=== PATIENT | male | born 1990 | race Caucasian/White ===

== ENCOUNTER 2020-08-15 11:02 | Emergency (ER) | payer OTHER, SELFPAY ==
[2020-08-15 11:10] VITALS: BP 119/74; PULSE 81; RESP 18; TEMP 36.6; O2SAT 100; BMI 30.1
--- NOTE | 2020-08-15 11:59 | PC.NURSE ---
[place] [facility] NOTIFIED BY PHONE MESSAGE. NO FAX NUMBER. PATIENT GIVEN ANIMAL BITE REPORT TO PRESENT TO [facility].
--- NOTE | 2020-08-15 11:59 | ED.ANIMALBIT ---
HPI - Animal Bite General Chief Complaint: Animal Bite Stated Complaint: dog bite Time Seen by Provider: 08/15/20 11:59 History of Present Illness HPI narrative: Patient complains of dog bite today to his right forearm from his sister's dog which is a known dog up-to-date on rabies shots that lives in sister's home He has no joint pain no numbness weakness or tingling no other injury He is not up-to-date on tetanus shot and has no allergy to antibiotic Related Data Previous Rx's Medication Instructions Recorded amoxicillin-pot clavulanate 1 tab PO BID 3 Days #6 tab 08/15/20 [Augmentin] Allergies Allergy/AdvReac Type Severity Reaction Status Date / Time No Known Allergies Allergy Verified 08/15/20 11:12 Review of Systems Review of Systems: Positive for right forearm dog bite Negative no fever no chills no headache no difficulty breathing or swallowing no rash no joint pain no numbness weakness or tingling PMFSH Past Medical History Source: nursing notes reviewed Medical History (Updated 08/15/20 @ 12:04 by ZABRINA Sparks) No known health problems Social History Social History Advance Directives: No Advance Directives Information Provided: No Physical Exam Vital Signs: Vital Signs: Last Vital Signs Temp 97.9 F 08/15/20 11:10 Pulse 81 08/15/20 11:10 Resp 18 08/15/20 11:10 BP 119/74 08/15/20 11:10 Pulse Ox 100 08/15/20 11:10 Body Mass Index 30.1 General appearance no distress Head is normocephalic atraumatic Neck supple nontender Respiratory no distress Extremities the right forearm has 3 superficial bite vaughn, no swelling of wrist or elbow there is full range of motion in all joints, neurovascular intact distal and full tendon function distal Skin no rash Neuro no focal motor or sensory deficit Course Course Course Narrative: The dog that bit him belongs to his sister and can be observed The sister also says that is fully up-to-date on all rabies immunization Prophylactic antibiotics started and tetanus shot given Discharge Plan Discharge Clinical Impression: Dog bite Qualifiers: Encounter type: initial encounter Qualified Code(s): W54.0XXA - Bitten by dog, initial encounter Patient Disposition: Home, Self-Care Additional Instructions: Bite does not look serious and does not need stitches, the bite vaughn will close on their own over the next several days Return any time for fever, redness, pain, swelling, any sign of infection around the bite wounds We are giving antibiotic Augmentin to prevent infection and you got a tetanus shot Prescriptions: New amoxicillin-pot clavulanate [Augmentin] 875-125 mg tablet 1 tab PO BID 3 Days Qty: 6 RF: 0 Interventions: ED Discharge Assessment Last Done: 08/15/20 12:12 Discharge Date/Time: 08/15/20 12:13
[2020-08-15] MEDS: Diphth,Pertus(ACell),Tet Adult 0.5 ML SYRINGE IM (12:08)
[2020-08-15] MEDS: Amoxicillin/Potassium Clav 875 MG TABLET PO (12:08)
== END 2020-08-15 12:13 | disposition home or self-care (01) ==
PROVIDERS: Emergency Provider Emergency Medicine; PCP Internal Medicine
DX: S51.851A Open bite of right forearm, initial encounter (principal); M79.601 Pain in right arm; W54.0XXA Bitten by dog, initial encounter; Y93.9 Activity, unspecified; Y92.9 Unspecified place or not applicable; Y99.9 Unspecified external cause status
CPT/HCPCS: 90471; 90715; 99283

== ENCOUNTER 2022-11-26 09:19 | Outpatient (AMB) | payer SELFPAY ==
[2022-11-26 09:37] VITALS: BP 110/66; PULSE 65; TEMP 36.9; O2SAT 97
--- NOTE | 2022-11-26 09:37 | AM.OFFWIN_ITS ---
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 He states that he has not had a fever or chills, no baseline allergy history. He reports no known contact with COVID or sick individuals. He denies fever or chills, nausea vomiting or diarrhea, headache or dizziness, sore throat, difficulty swallowing, malaise or myalgias, shortness of breath or chest pain, excessively runny nose, weakness, anorexia, rashes, or other significant associated symptoms. No underlying immuno compromising issues [facility] Medical History No known health problems Social History Patient Tobacco Use Status: Never used Tobacco Review of Systems Const All systems reviewed & are unremarkable except as noted in HPI and below Physical Exam Vital Signs: Last Vital Signs Temp 98.4 F 11/26/22 09:37 Pulse 65 11/26/22 09:37 BP 110/66 11/26/22 09:37 Pulse Ox 97 11/26/22 09:37 Oxygen Delivery Method Room Air 11/26/22 09:37 Const General: cooperative, healthy appearing, comfortable, no acute distress, alert, awake, Physically active and well groomed; No anxious, diaphoretic, ill appearing, intoxicated appearing, poor hygiene or tired appearing Nutritional Appearance: average body habitus Orientation/consciousness: oriented to person Limitations: no limitations HEENT Head: Yes normal to inspection, Yes normocephalic and Yes atraumatic Ears: hearing grossly normal bilaterally, external ears normal, EAC's normal and TM abnormal (Right TM) erythematous and with fluid behind the TM General nose exam: Normal external nose present, Normal nares present, No nasal polyps present, Normal nasal mucous membranes and turbinates present, Normal septum present and No nasal discharge present Face and sinus: Yes normal facial exam, Yes sinuses nontender and Yes face symmetric Mouth: Normal oral and palatal mucosa present, lip normal and tongue normal Throat: Yes posterior oropharynx normal, Yes abnormal tonsil (mildly erythematous bilaterally), No peritonsillar mass, No uvular edema and No cobblestoning Eyes General: appearance normal, both eyes and all related structures Neck Neck: Yes normal visual inspection, Yes full ROM, Yes no lymphadenopathy, Yes trachea midline, Yes supple and No anterior neck swelling Chest Chest palpation & inspection: normal palpation of entire chest wall Resp Effort & Inspection: normal respiratory effort, able to speak in complete sentences, no audible wheezes, no cough, no grunting, not labored, no nasal flaring, no retractions and symmetric chest movement Auscultation: clear to auscultation bilaterally, no crackles, no rales, no rhonchi, no wheezes, lung sounds not diminished and No rub present Cardio Palpation: normal PMI Rate: regular rate Rhythm: regular rhythm Heart sounds: S1 normal heart sound present and S2 normal heart sound present Skin Other: Good color, warm and dry Neuro General: oriented to person Psych Appearance: grossly normal Mental Status: mental status grossly normal Speech and movement: Normal speech and movement present Affect: normal affect Attitude: cooperative Thought process: Normal thought process present Insight: Good insight present (Psych) Judgement: Good judgement present (Psych) Assessment & Plan Assessment & Plan (1) Viral syndrome: Code(s): B34.9 - Viral infection, unspecified Plan: Patient with apparent viral syndrome/upper respiratory infection that is now looking like a right otitis media. Likely this is what is causing his persistent postnasal drip and cough, especially when supine. Will write him for Tessalon Perles for the cough, and Augmentin for the right ear. He is pending rapid COVID testing. PCR testing not available. He will follow up if symptoms persist or worsen Orders: Orders BinaxNOW Covid-19 11/26/22 Z20.822 - Contact with and (suspected) exposure to COVID-19 Medications: New benzonatate 100 mg PO BID-TID PRN 30 caps 0RF cough amoxicillin-pot clavulanate 875-125 mg 1 tab PO BID 14 tabs 0RF Coding Level of Care Code Est Pt Level 4 (08697) Diagnoses Viral syndrome B34.9
== END 2022-11-26 11:01 | disposition home or self-care (01) ==
PROVIDERS: PCP Internal Medicine; Visit Provider Physician Assistant Medical
DX: B34.9 Viral infection, unspecified (principal)
CPT/HCPCS: 99051; 99214

== ENCOUNTER 2022-11-26 10:20 | Outpatient (REF) | payer SELFPAY ==
[2022-11-26 10:49] LABS: Binax Now Covid-19 Ag Negative (Negative)
[2022-11-26 10:50] LABS: Binax Internal Control QC Valid; Binax Performed by: HO.BONILM
== END 2022-11-26 10:21 | disposition home or self-care (01) ==
LOC: HO.HMGCLDS 10:20
PROVIDERS: Visit Provider Physician Assistant Medical
DX: Z20.822 Contact with and (suspected) exposure to COVID-19 (principal)
CPT/HCPCS: 87811; C9803

== ENCOUNTER 2024-09-13 09:46 | Outpatient (AMB) | payer SELFPAY ==
[2024-09-13 09:47] VITALS: BP 124/82; PULSE 85; TEMP 36.5; O2SAT 97; BMI 31.0
--- NOTE | 2024-09-13 09:47 | MHC.OFFWIV ---
Intake Vital Signs 09/13/24 09:47 Height 5 ft 3 in Weight 175 lb 4 oz BMI 31.0 BP 124/82 Blood Pressure Location Lt brachial Position Sitting Pulse 85 Pulse Source Pulse Oximeter Temp 97.7 F Temp Source Oral Pulse Oximetry (%) 97 Oxygen Delivery Method Room Air Intake Visit Reasons: EP ?Sinus infection Intake Note: Pt presents to the office today for c/o sinus pressure,headache, runny nose since yesterday. Patient Tobacco Use Status: Never used Tobacco Allergies No Known Allergies Allergy (Verified 09/13/24 09:50) HPI EP ?Sinus infection HPI Details This is a 34-year-old male patient who presents to the walk-in clinic with report of a 1-2 day history of mildly sore throat, nasal congestion/sinus pressure, headache. Reports fever up to 100.8. Denies any cough/shortness of breath or GI symptoms. Denies any known exposure to sick contacts. Has been increasing rest, hydration, and taking vitamin-C and elderberry supplements. [facility] Medical History No known health problems Social History Patient Tobacco Use Status: Never used Tobacco Review of Systems Const All systems reviewed & are unremarkable except as noted in HPI and below Physical Exam Vital Signs: Last Vital Signs Temp 97.7 F 09/13/24 09:47 Pulse 85 09/13/24 09:47 BP 124/82 09/13/24 09:47 Pulse Ox 97 09/13/24 09:47 Oxygen Delivery Method Room Air 09/13/24 09:47 BMI result Body Mass Index 31.0 Const General: cooperative, healthy appearing, comfortable and no acute distress Limitations: no limitations HEENT Head: Yes normal to inspection Ears: hearing grossly normal bilaterally General nose exam: Normal external nose present Face and sinus: Yes normal facial exam Mouth: Normal oral and palatal mucosa present Throat: Yes posterior oropharynx normal Neck Neck: Yes no lymphadenopathy Resp Effort & Inspection: normal respiratory effort Auscultation: clear to auscultation bilaterally Cardio Jugular venous distension: no JVD Rate: regular rate Rhythm: regular rhythm Skin General skin exam: no rashes or lesions noted Extrem General: Yes capillary refill normal and Yes no clubbing, cyanosis or edema Psych Appearance: grossly normal Mental Status: mental status grossly normal Speech and movement: Normal speech and movement present Assessment & Plan Assessment & Plan (1) Viral upper respiratory infection: Code(s): J06.9 - Acute upper respiratory infection, unspecified Plan: Symptoms are consistent with a viral upper respiratory illness. We discussed treatment modalities and that antibiotics are not recommended for such illnesses. I encouraged conservative measures including rest, hydration, healthy food/vitamin intake, and [id number] cold/flu medication as needed for symptom management. He declines any viral testing today. If he does not improve with time and conservative measures, or if symptoms worsen/new symptoms develop, he can certainly return to the clinic for further evaluation. Patient verbalizes understanding and agrees to plan. Coding Level of Care Code Est Pt Level 3 (55588) Diagnoses Viral upper respiratory infection J06.9
--- OUTSIDE RECORDS SUMMARY | 2024-09-13 10:10 | XMS_ITS | Data Portability ---
Author Organization [facility] Address [address] [place] [address] Assessment No assessment recorded. Plan of Treatment Reminders Order Date Submit Date Provider Last Modified By Organization Details Last Modified Time Details Appointments None record ed. Lab None record ed. Referral None record ed. Procedures None record ed. Surgeries None record ed. Imaging None record ed. Medication Orders None record ed. Patient TargetsNo targets recorded. Patient InstructionsNo instructions recorded. Reason for Referral None Reported. Procedures Surgical History Date Name Laterality Status Provider Name and Address Organization Details Recorded Time 3 OC-UDS Send Out Template NON DOT completed IRIS COUVERTIER [facility] - [facility] 06/02/2022 10:39:56 Imaging Results None recorded. Procedure Notes None recorded. Medical Equipment None Reported. Vitals None Recorded Social History None recorded. Functional Status None recorded. Mental Status None recorded. Family History Nothing Reported. Medical History No medical history recorded. Past Encounters Encounter ID Performer Location Encounter Start Date Encounter Closed Date Diagnosis/Indication Diagnosis SNOMED-CT Code Diagnosis ICD10 Code Diagnosis Note [id number] [facility] [address] [place] [address] 01/03/2020 09:19:38 01/03/2020 10:13:37 [id number] [facility] [address] [address] 11/17/2016 08:59:07 11/17/2016 09:28:50 [id number] [place] [address]_[facility] [address] [place] [address] 06/02/2022 09:27:40 06/02/2022 10:41:55 History and physical examination, occupation [id number] Z02.1 Health Concerns Section Related Observation LastModified by Organization Detai ls LastModified Time None Recorded Concern Status LastModified by Organization Details LastModified Time None Recorded Advance Directives Directive None Recorded Payers Insurance Date Sequence Insurance Name Policy Number Policy Hale Covered Member ID Hale Member ID Guarantor Name 06/02/2022 DO NOT USE James Hdez DRUG ESCREEN DRUG ESCREEN James Hdez 06/02/2022 OC-ESCREEN James Hdez [id number] James Blevinsulding 06/02/2022 1 [place]GRAM Darryn Merino [id number] James Hdez
== END 2024-09-13 10:19 | disposition home or self-care (01) ==
PROVIDERS: PCP Internal Medicine; Visit Provider Nurse Practitioner Family
DX: J06.9 Acute upper respiratory infection, unspecified (principal)

== ENCOUNTER → 2024-09-13 09:46 | Outpatient (BNVA) | payer SELFPAY | PROVIDERS: PCP Internal Medicine; Visit Provider Nurse Practitioner Family | DX: J06.9 Acute upper respiratory infection, unspecified (principal) | CPT/HCPCS: 99212 ==

== ENCOUNTER 2025-03-10 10:03 | Outpatient (AMB) | payer SELFPAY ==
--- NOTE | 2025-03-10 10:11 | A.OFFPC_ITS ---
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: No Accompanied by: Self / Same As Patient Allergies No Known Allergies Allergy (Verified 03/10/25 10:11) Tobacco use date assessed: 03/10/25 Dental Screening Dental Screen Date: 03/10/25 Did you have a dental visit in the last 12 months?: Yes Did you have a dental problem in the last 6 months where you did not have access to dental care?: No Was dental information given to patient?: Patient has dentist HPI HPI Comments History of Present Illness Details History of Present Illness - The patient is a 34 year old individua l presenting for a comprehensive physical examination and to establish care. - The patient is seeking a new physician because the previous provider retired. - The patient denies any regular medicat ion use or known medical issues. - The patient notes a minor rash on the hand, which was identified as dry skin. - The patient has not received an influe nza vaccine this year. Social History - Employment and Insurance: The patient works part-time at a [employer] and does not have health insurance. - Substance Use: The patient reports hav ing smoked a few times in life but not on a regular basis and consumes alcohol socially on weekends. - Family and Social: The patient is sing le with no children and has two sisters. Results [facility] Medical History No known health problems Family History (Updated 03/10/25 @ 10:17 by BORA Salamanca) Father No problems noted. Mother No problems noted. Social History (Updated 03/10/25 @ 10:17 by BORA Salamanca) Housing: House Alcohol intake: current Alcohol intake frequency: a few times a week Patient Tobacco Use Status: Never used Tobacco service: No Current occupational status: employed Cognitive needs: No Hearing needs: No Vision needs: No Questionnaire Thrive Questionnaire Date Thrive assessed: 03/10/25 AUDIT C Alcohol Use Questionnaire (AUDIT-C) 1. How often do you have a drink containing alcohol?: 2-3 times a week 2. How many drinks containing alcohol do you have on a typical day when you are drinking?: 1 or 2 3. How often do you have six or more drinks on one occasion?: Never Total Score: 3 СВЕТЛАНА-7 AMB Questionnaire СВЕТЛАНА-7 Date СВЕТЛАНА - 7 assessed: 03/10/25 Source: Developed by Drs. Brian Easton, Tonya Wilkinson, Philip Talley and colleagues, with an educational inocente from [employer]. Review of Systems Narrative Review of Systems - Skin: Reports a rash on the hand. - Eyes: Reports good vision. - Ears: Reports good hearing. Physical exam (Primary Care) Vital Signs: Last Vital Signs Temp 97 F 03/10/25 10:12 Pulse 66 03/10/25 10:12 Resp 14 03/10/25 10:12 BP 107/60 03/10/25 10:12 Pulse Ox 98 03/10/25 10:12 Oxygen Delivery Method Room Air 03/10/25 10:12 BMI result Body Mass Index 26.7 Tobacco/Smoking Status: Tobacco use Status Tobacco use date assessed 03/10/25 03/10/25 10:17 Patient Tobacco Use Status Never used Tobacco 03/10/25 10:17 PHQ-9: PHQ-9 Score PHQ-9: Total score 0 03/10/25 10:21 Thrive Assessment: Date of Thrive Assessment Date Thrive assessed 03/10/25 03/10/25 10:17 Narrative Physical Exam General: Cooperative and healthy appearing Nutritional Appearance: Well nourished Orientation/consciousness: Patient oriented x3 Limitations: No limitations Head: Normal to inspection General: Appearance normal, both eyes and all related structures Neck: Normal visual inspection Chest: Normal palpation of entire chest wall Respiratory: Normal respiratory effort Neurology: Patient oriented x3 Office Procedures Flu Questionnaire Does the patient have a severe egg allergy?: No Does the patient have severe life threatening allergies?: No Does the patient have a fever or illness today?: No Has the patient ever had Guillain-[place] Syndrome?: No Has the patient ever had any past reaction to a flu shot?: No Immunizations Fluarix [id number] (PF) 45 mcg (15 mcg x 3)/0.5 mL IM syringe Performing Provider: Castillo Garner MD Performing Location: [facility] [place] [facility] Documented (not given) by: BORA Salamanca on 03/10/25 10:18 Reason Not Given: Patient Refused Coding Level of Care Code New Pt Prev Care 18-39yr(66516 Diagnoses Annual physical exam Z00.00 Assessment & Plan Assessment & Plan (1) Annual physical exam: Code(s): Z00.00 - Encounter for general adult medical examination without abnormal findings Plan Plan - Will order routine blood work. - Reassured the patient that the rash on the hand is dry skin. - The patient declined the influenza vaccine. - Recommended to return in one year for a follow-up visit. Discussion Notes I discussed the plan to order routine blood work, as none have been done recently. I addressed the patient's concern regarding a hand rash, reassuring the patient that it appears to be dry skin. The patient was offered an influenza vaccine but declined at this time. I advised the patient to follow up annually for routine health maintenance. Patient Instructions - Proceed to the lab for the ordered blood work. - Return to the clinic in one year for your next annual physical. Orders: Orders Basic Metabolic Panel Today Z00.00 - Encounter for general adult medical examination without abnormal findings Influenza [id number] Immunization Today Z23 - Encounter for immunization Complete Blood Count no Diff Today Z00.00 - Encounter for general adult medical examination without abnormal findings Lipid Panel Today Z00.00 - Encounter for general adult medical examination without abnormal findings Liver Panel Today Z00.00 - Encounter for general adult medical examination without abnormal findings Thyroid Stimulating Hormone Today Z00.00 - Encounter for general adult medical examination without abnormal findings UA and rflx microscopic Today Z00.00 - Encounter for general adult medical examination without abnormal findings
[2025-03-10 10:12] VITALS: BP 107/60; PULSE 66; RESP 14; TEMP 36.1; O2SAT 98; BMI 26.7
--- OUTSIDE RECORDS SUMMARY | 2025-03-10 12:06 | XMS_ITS | Clinical Summary ---
Author Organization [facility] Address [address] [place] [phone] Phone Care Team Providers Care Air Conditioning Manager Name Role Phone Pcp, Unknown Primary Care Provider Unavailabl e Allergies No known active allergies Medications No known medications Active Problems No known active problems Social History Tobacco Use Types Packs/Day Years Used Date Smoking Tobacco: Never Assessed Education Answer Date Recorded Are you interested in more education? Not on ernestine e 02/02/2023 Are you concerned about learning? Not on file 02/02/2023 No 02/02/2023 No 02/02/2023 Digital Access Answer Date Recorded No 02/02/2023 No 02/02/2023 Reliable internet access at home? Not on file 02/02/2023 Device with a working camera? Not on file Sex and Gender Information Value Date Recorded Sex Assigned at Not on file Legal Sex Male 1:47 PM EDT Gender Identity Not on file Sexual Orientation Not on file Last Filed Vital Signs Vital Sign Reading Time Taken Comments Blood Pressure 124/70 02/15/2023 12:44 PM EDT Pulse 80 02/15/2023 12:44 PM EDT Temperature 36.7 C (98.1 F) 02/15/2023 12:44 PM EDT Respiratory Rate 18 02/15/2023 12:44 PM EDT Oxygen Saturation 98% 02/15/2023 12:44 PM EDT Inhaled Oxygen Concentration - - Weight 73.9 kg (163 lb) 02/15/2023 12:44 PM EDT Height 165.1 cm (5' 5 ) 02/15/2023 12:44 PM EDT Body Mass Index 27.12 02/15/2023 12:44 PM EDT Plan of Treatment Health Maintenance Due Date Last Done Comments DEPRESSION SCREENING 2004 SMOKING Hx and SMOKELESS TOB ACCO SCREENING 2005 HEPATITIS C SCREENING 2010 HIV ONE-TIME SCREENING (18-6 5 YEARS) 2010 INFLUENZA VACCINE (#1) 2024 COVID-19 VACCINE ( - 2024-2 6 season) 2024 Adult Td,Tdap Booster 08/15/2030 08/15/2020 HEPATITIS A VACCINES Aged Out No long er eligible based on patient's age to complete this topic HIB VACCINES Aged Out No longer eligi ble based on patient's age to complete this topic MENINGOCOCCAL VACCINES (ACWY) Aged Out No longer eligible based on patient's age to complete this topic MENINGOCOCCAL VACCINES (B) Aged Out N o longer eligible based on patient's age to complete this topic PNEUMOCOCCAL VACCINES (0-49 years) Aged Out No longer eligible based on patient's age to complete this topic Medical Devices Not on file Care Teams Air Conditioning Manager Relationship Specialty Start Date End Date Pcp, Unknown PCP - General 11/08/22 Additional Source Comments The information contained in this document represents components of the legal health record. It is not the complete legal health record.[facility]
== END 2025-03-10 10:33 | disposition home or self-care (01) ==
LOC: HO.HMCSH 10:03
PROVIDERS: PCP Internal Medicine; Visit Provider Internal Medicine
DX: Z23 Encounter for immunization (principal); Z00.00 Encounter for general adult medical examination without abnormal findings

== ENCOUNTER → 2025-03-10 10:03 | Outpatient (BNVA) | payer SELFPAY | PROVIDERS: PCP Internal Medicine; Visit Provider Internal Medicine | DX: Z00.00 Encounter for general adult medical examination without abnormal findings (principal); Z28.21 Immunization not carried out because of patient refusal; Z87.891 Personal history of nicotine dependence | CPT/HCPCS: 90471; 96127; 99385 ==